=== PATIENT | male | born 1975 | race Caucasian/White ===

== ENCOUNTER 2016-05-29 22:01 | Emergency (ER) | payer BC ==
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
[2016-05-29 23:15] VITALS: BP 123/76
== END 2016-05-29 23:01 | disposition home or self-care (01) ==
LOC: MW.ED 22:01
DX: Z71.1 Person with feared health complaint in whom no diagnosis is made (principal); F17.210 Nicotine dependence, cigarettes, uncomplicated; Z88.5 Allergy status to narcotic agent; Z87.01 Personal history of pneumonia (recurrent)
CPT/HCPCS: 80305; 99281; 99282

== ENCOUNTER 2016-12-14 09:22 | Emergency (ER) | payer BC ==
[2016-12-14] MEDS ORDERED: Famotidine 20 MG Tab PO ONE (09:27)
[2016-12-14] MEDS ORDERED: methylPREDNISolone Sodium Succinate 125 MG/2 ML SDV IVPUSH ONE (09:27)
--- NOTE | 2016-12-14 09:28 | EDM.PDOC ---
ED HPI GENERAL MEDICAL PROBLEM - General Chief Complaint: Allergic Reaction Stated Complaint: unk Time Seen by Provider: 12/14/16 09:27 Source of Information: Reports: Patient - History of Present Illness INITIAL COMMENTS - FREE TEXT/NARRATIVE: HISTORY AND PHYSICAL: History of present illness: []Patient has history of allergic reaction and seasonal allergies, he states he reacted to medication over [facility] last year he does not know what this medication is. 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 Past medical history: As per history of present illness and as reviewed below otherwise noncontributory. Surgical history: As per history of present illness and as reviewed below otherwise noncontributory. Social history: No reported history of drug or alcohol abuse. Family history: As per history of present illness and as reviewed below otherwise noncontributory. Physical exam: HEENT: Atraumatic, normocephalic, pupils reactive, negative for conjunctival pallor or scleral icterus, mucous membranes moist, throat clear, neck supple, nontender, trachea midline. No lip swelling tongue swelling or oral pharyngeal edema no stridor Lungs: Clear to auscultation, breath sounds equal bilaterally, chest nontender. Heart: S1S2, regular, negative for clicks, rubs, or JVD. Abdomen: Soft, nondistended, nontender. Negative for masses or hepatosplenomegaly. Negative for costovertebral tenderness. Pelvis: Stable nontender. Genitourinary: Deferred. Rectal: Deferred. Extremities: Atraumatic, negative for cords or calf pain. Neurovascular unremarkable. Neuro: Awake, alert, oriented. Cranial nerves II through XII unremarkable. Cerebellum unremarkable. Motor and sensory unremarkable throughout. Exam nonfocal. Skin skin is flushed on hands and arms face and trunk several urticarial lesions on the arm on the right Diagnostics: []Lab as below EKG Therapeutics: []Solu-Medrol 125 mg IV Famotidine 20 mg by mouth Benadryl 50 mg IV Medrol Dosepak [id number] symptomatic therapy continued when necessary EpiPen Impression: []Allergic reaction, unknown source Definitive disposition and diagnosis as appropriate pending reevaluation and review of above. Headache Pain Score (Numeric/FACES): 5 - Related Data Allergies Allergy/AdvReac Type Severity Reaction Status Date / Time morphine Allergy Nausea Verified 12/14/16 09:25 Home Meds: Home Meds . [No Known Home Meds] 05/29/16 [History] Past Medical History - Past Health History Medical/Surgical History: Denies Medical/Surgical History Respiratory History: Reports: Pneumonia, Recurrent Gastrointestinal History: Reports: Diverticulosis, Irritable Bowel Syndrome - Infectious Disease History Infectious Disease History: Reports: Chicken Pox - Past Surgical History GI Surgical History: Reports: Other (See Below) Social & Family History - Family History Family Medical History: Noncontributory - Tobacco Use Smoking Status *Q: Current Every Day Smoker Years of Tobacco use: 30 Packs/Tins Daily: 0.2 Used Tobacco, but Quit: No Second Hand Smoke Exposure: No - Caffeine Use Caffeine Use: Reports: Coffee - Alcohol Use Days Per Week of Alcohol Use: 7 Number of Drinks Per Day: 2 Total Drinks Per Week: 14 - Recreational Drug Use Recreational Drug Use: No Drug Use in Last 12 Months: Yes Recreational Drug Type: Reports: Marijuana/Hashish Recreational Drug Use Frequency: Patient Refuses To Answer ED ROS ALLERGIC REACTION - Review of Systems Review Of Systems: ROS reveals no pertinent complaints other than HPI. ED EXAM GENERAL NO PERIP PULSE - Physical Exam Exam: See Below Course - Vital Signs Last Recorded V/S: Last Vital Signs Temp 36.9 C 12/14/16 10:30 Pulse 69 12/14/16 10:30 Resp 16 12/14/16 10:30 BP 118/62 12/14/16 10:30 Pulse Ox 98 12/14/16 10:30 - Orders/Labs/Meds Orders: Active Orders 24 hr Category Date Time Status EKG 12 Lead [EKG Documentation Completion] [RC] STAT Care 12/14/16 09:33 Active Labs: Laboratory Tests 12/14/16 12/14/16 Range/Units 09:35 09:35 WBC 7.11 (4.0-11.0) K/uL RBC 5.10 (4.50-5.90) M/uL Hgb 16.2 (13.0-17.0) g/dL Hct 46.4 (38.0-50.0) % MCV 91.0 (80.0-98.0) fL MCH 31.8 (27.0-32.0) pg MCHC 34.9 (31.0-37.0) g/dL RDW Std Deviation 42.8 (28.0-62.0) fl RDW Coeff of Temo 13 (11.0-15.0) % Plt Count 220 (150-400) K/uL MPV 10.50 (7.40-12.00) fL Neut % (Auto) 58.9 (48.0-80.0) % Lymph % (Auto) 29.1 (16.0-40.0) % [place] % (Auto) 8.9 (0.0-15.0) % Eos % (Auto) 2.8 (0.0-7.0) % Baso % (Auto) 0.3 (0.0-1.5) % Neut # (Auto) 4.2 (1.4-5.7) K/uL Lymph # (Auto) 2.1 (0.6-2.4) K/uL [place] # (Auto) 0.6 (0.0-0.8) K/uL Eos # (Auto) 0.2 (0.0-0.7) K/uL Baso # (Auto) 0.0 (0.0-0.1) K/uL Nucleated RBC % 0.0 /100WBC Nucleated RBCs # 0 K/uL Sodium 141 (136-146) mmol/L Potassium 4.3 (3.5-5.1) mmol/L Chloride 107 (98-110) mmol/L Carbon Dioxide 25 (21-31) mmol/L BUN 14 (6.0-23.0) mg/dL Creatinine 0.9 (0.6-1.5) mg/dL Est Cr Clr Drug Dosing 95.50 mL/min Estimated GFR (MDRD) > 60.0 ml/min Glucose 123 H (60-110) mg/dL Calcium 9.1 (8.8-10.8) mg/dL Total Bilirubin 0.4 (0.1-1.5) mg/dL AST 35 (5-40) IU/L ALT 56 H (8-54) IU/L Alkaline Phosphatase 56 (40-150) Troponin I < 0.10 (0.0-0.29) NG/ML Total Protein 7.1 (6.0-8.0) g/dL Albumin 4.2 (3.5-5.0) g/dL Globulin 2.9 (2.0-3.5) g/dL Albumin/Globulin Ratio 1.5 (1.3-2.8) Meds: Medications Discontinued Medications Generic Name Dose Route Start Last Admin Trade Name Freq PRN Reason Stop Dose Admin Diphenhydramine HCl 50 mg 12/14/16 09:30 12/14/16 09:41 Benadryl IVPUSH 12/14/16 09:31 50 mg ONETIME ONE Administration Famotidine 20 mg 12/14/16 09:27 12/14/16 09:40 Pepcid PO 12/14/16 09:28 20 mg ONETIME ONE Administration Sodium Chloride 1,000 mls @ 999 mls/hr 12/14/16 09:32 12/14/16 09:42 Normal Saline IV 12/14/16 10:32 999 mls/hr NOW STA Administration Sodium Chloride 1,000 mls @ 999 mls/hr 12/14/16 09:32 12/14/16 09:45 Normal Saline IV 12/14/16 10:32 Not Given STAT ONE Methylprednisolone Sodium Succinate 125 mg 12/14/16 09:27 12/14/16 09:40 Solu-Medrol IVPUSH 12/14/16 09:28 125 mg ONETIME ONE Administration Departure - Departure Time of Disposition: 10:41 Disposition: Home, Self-Care 01 Condition: Good Clinical Impression: Allergic reaction - Discharge Information Additional Instructions: Medication as prescribed Return if symptoms persist or worsen Zantac 150 milligrams by mouth twice a day may benefit Benadryl 50 mg every 6 hours as needed All these medications can be used with each other safely and provide benefit Follow-up with primary care in 2 weeks sooner as needed consider allergy testing [facility] - Primary Care [address] [place] [id number] The following information is given to patients seen in the emergency department who are being discharged to home. This information is to outline your options for follow-up care. We provide all patients seen in our emergency department with a follow-up referral. The need for follow-up, as well as the timing and circumstances, are variable depending upon the specifics of your emergency department visit. If you don't have a primary care physician on staff, we will provide you with a referral. We always advise you to contact your personal physician following an emergency department visit to inform them of the circumstance of the visit and for follow-up with them and/or the need for any referrals to a consulting specialist. The emergency department will also refer you to a specialist when appropriate. This referral assures that you have the opportunity for follow-up care with a specialist. All of these measure are taken in an effort to provide you with optimal care, which includes your follow-up. Under all circumstances we always encourage you to contact your private physician who remains a resource for coordinating your care. When calling for follow-up care, please make the office aware that this follow-up is from your recent emergency room visit. If for any reason you are refused follow-up, please contact the [facility] emergency department at and asked to speak to the emergency department charge nurse. - My Orders Last 24 Hours: My Active Orders 12/14/16 09:33 EKG 12 Lead [EKG Documentation Completion] [RC] STAT - Assessment/Plan Last 24 Hours: My Active Orders 12/14/16 09:33 EKG 12 Lead [EKG Documentation Completion] [RC] STAT
[2016-12-14] MEDS ORDERED: diphenhydrAMINE 50 MG/ML SDV IVPUSH ONE (09:30)
[2016-12-14] MEDS ORDERED: Sodium Chloride 0.9% 1,000 ML IV STA (09:32)
[2016-12-14] MEDS ORDERED: Sodium Chloride 0.9% 1,000 ML IV ONE (09:32)
[2016-12-14 10:14] LABS: CHLORIDE,CL 107 mmol/L (98-110); SODIUM,NA 141 mmol/L (136-146)
[2016-12-14 10:33] VITALS: BP 118/62
== END 2016-12-14 11:14 | disposition home or self-care (01) ==
LOC: MW.ED 09:22
DX: T78.40XA Allergy, unspecified, initial encounter (principal); F17.210 Nicotine dependence, cigarettes, uncomplicated; Z88.5 Allergy status to narcotic agent
CPT/HCPCS: 36415; 80053; 84484; 85025; 93005; 96361; 96374; 96375; 99283; A9270; J1200; J2930; J7040; 99284

== ENCOUNTER 2018-11-09 20:20 | Emergency (ER) | payer SELFPAY ==
[2018-11-09 20:31] VITALS: BP 126/81; PULSE 106
[2018-11-09] MEDS ORDERED: Lidocaine 2% Viscous Solution 15 ML Cup PO ONE (20:43)
[2018-11-09] MEDS ORDERED: Benzocaine 20% Topical Spray UD MUCMEM ONE (20:43)
[2018-11-09] MEDS ORDERED: Ketorolac 60 MG/2 ML SDV IM ONE (20:49)
--- NOTE | 2018-11-09 21:10 | EDM.PDOC ---
ED HPI GENERAL MEDICAL PROBLEM - General Chief Complaint: General Stated Complaint: DENTAL PROBLEMS Time Seen by Provider: 11/09/18 20:30 Source of Information: Reports: Patient History Limitations: Reports: No Limitations - History of Present Illness INITIAL COMMENTS - FREE TEXT/NARRATIVE: HISTORY AND PHYSICAL: History of present illness: Patient is a 42-year-old male presents to the ED With complaint of dental pain. He states he had a partial cap placed on a right lower tooth last week. He states he has been having a lot of pain since then. He is taking penicillin but states he was not given anything for pain. He took some ibuprofen 800mg without relief. He denies fevers, chills, nausea, vomiting. Review of systems: As per history of present illness and below otherwise all systems reviewed and negative. Past medical history: As per history of present illness and as reviewed below otherwise noncontributory. Surgical history: As per history of present illness and as reviewed below otherwise noncontributory. Social history: No reported history of drug or alcohol abuse. Family history: As per history of present illness and as reviewed below otherwise noncontributory. Physical exam: General: Patient sitting comfortably in no acute distress and nontoxic appearing HEENT: Temporary cap to tooth #28. No adjacent gum erythema or abscess. Atraumatic, normocephalic, pupils reactive, negative for conjunctival pallor or scleral icterus, mucous membranes moist, throat clear, neck supple, nontender, trachea midline. No meningeal signs. Lungs: Clear to auscultation, breath sounds equal bilaterally, chest nontender. Heart: S1S2, regular, negative for clicks, rubs, or overt murmur. Abdomen: Soft, nondistended, nontender. Negative for masses or hepatosplenomegaly. Negative for costovertebral tenderness. No rigidity, rebound , guarding. Pelvis: Stable nontender. Genitourinary: Deferred. Rectal: Deferred. Extremities: Atraumatic, negative for cords or calf pain. Neurovascular unremarkable. Neuro: Awake, alert, oriented. Cranial nerves II through XII unremarkable. Cerebellum unremarkable. Motor and sensory unremarkable throughout. Exam nonfocal. Notes: Diagnostics: [] Therapeutics: Dental balls Toradol 60mg IM Prescriptions: Tylenol #3 Impression: Dentalgia Plan: Use dental balls and take ibuprofen as instructed You may take Tylenol No. 3 as needed for severe pain, do not take while driving as it may make you drowsy. Follow-up with dentist Return to ED as needed as discussed Definitive disposition and diagnosis as appropriate pending reevaluation and review of above. right upper dental pain Pain Score (Numeric/FACES): 10 - Related Data Allergies Allergy/AdvReac Type Severity Reaction Status Date / Time morphine Allergy Nausea Verified 02/01/18 12:20 Home Meds: Home Meds Penicillin V Potassium 11/09/18 [History] Past Medical History - Past Health History Medical/Surgical History: Denies Medical/Surgical History HEENT History: Reports: None Cardiovascular History: Reports: None Respiratory History: Reports: Pneumonia, Recurrent Gastrointestinal History: Reports: Diverticulosis, Irritable Bowel Syndrome Genitourinary History: Reports: None Musculoskeletal History: Reports: Other (See Below) Other Musculoskeletal History: broken fingers Neurological History: Reports: None Psychiatric History: Reports: None Endocrine/Metabolic History: Reports: None Hematologic History: Reports: None Immunologic History: Reports: None Oncologic (Cancer) History: Reports: None Dermatologic History: Reports: None - Infectious Disease History Infectious Disease History: Reports: Chicken Pox - Past Surgical History Head Surgeries/Procedures: Reports: None GI Surgical History: Reports: Other (See Below) Other GI Surgeries/Procedures: operation for diverticultis Social & Family History - Family History Family Medical History: Noncontributory - Tobacco Use Smoking Status *Q: Current Every Day Smoker Years of Tobacco use: 20 Packs/Tins Daily: 0.5 - Caffeine Use Caffeine Use: Reports: None - Recreational Drug Use Recreational Drug Use: No ED ROS GENERAL - Review of Systems Review Of Systems: ROS reveals no pertinent complaints other than HPI. ED EXAM, GENERAL - Physical Exam Exam: See Below (see dictation) Course - Vital Signs Last Recorded V/S: Last Vital Signs Temp 96.0 F 11/09/18 20:25 Pulse 106 H 11/09/18 20:25 Resp 18 11/09/18 20:25 BP 126/81 11/09/18 20:25 Pulse Ox 96 11/09/18 20:25 - Orders/Labs/Meds Meds: Medications Discontinued Medications Generic Name Dose Route Start Last Admin Trade Name Freq PRN Reason Stop Dose Admin Benzocaine 2 each 11/09/18 20:43 11/09/18 21:07 Hurricaine One 20% MUCMEM 11/09/18 20:44 2 each ONETIME ONE Administration Ketorolac Tromethamine 60 mg 11/09/18 20:49 11/09/18 21:06 Toradol IM 11/09/18 20:50 60 mg ONETIME ONE Administration Lidocaine HCl 15 ml 11/09/18 20:43 11/09/18 21:07 Xylocaine 2% Viscous PO 11/09/18 20:44 15 ml ONETIME ONE Administration Departure - Departure Time of Disposition: 21:10 Disposition: Home, Self-Care 01 Condition: Good Clinical Impression: Dentalgia - Discharge Information Referrals: PCP,None [Primary Care Provider] - Forms: ED Department Discharge Additional Instructions: The following information is given to patients seen in the emergency department who are being discharged to home. This information is to outline your options for follow-up care. We provide all patients seen in our emergency department with a follow-up referral. The need for follow-up, as well as the timing and circumstances, are variable depending upon the specifics of your emergency department visit. If you don't have a primary care physician on staff, we will provide you with a referral. We always advise you to contact your personal physician following an emergency department visit to inform them of the circumstance of the visit and for follow-up with them and/or the need for any referrals to a consulting specialist. The emergency department will also refer you to a specialist when appropriate. This referral assures that you have the opportunity for follow-up care with a specialist. All of these measure are taken in an effort to provide you with optimal care, which includes your follow-up. Under all circumstances we always encourage you to contact your private physician who remains a resource for coordinating your care. When calling for follow-up care, please make the office aware that this follow-up is from your recent emergency room visit. If for any reason you are refused follow-up, please contact the [facility] Emergency Department at and asked to speak to the emergency department charge nurse. [facility] Primary Care [address] [place] [address] [id number] [address] [place] [address] Use dental balls and take ibuprofen as instructed You may take Tylenol No. 3 as needed for severe pain, do not take while driving as it may make you drowsy. Follow-up with dentist Return to ED as needed as discussed
== END 2018-11-09 21:33 | disposition home or self-care (01) ==
LOC: MW.ED 20:20
DX: K08.89 Other specified disorders of teeth and supporting structures (principal); F17.200 Nicotine dependence, unspecified, uncomplicated; Z88.5 Allergy status to narcotic agent
CPT/HCPCS: 96372; 99282; A9270; J1885

== ENCOUNTER 2018-11-21 18:53 | Emergency (ER) | payer SELFPAY ==
[2018-11-21 19:10] VITALS: BP 119/78; PULSE 97
--- NOTE | 2018-11-21 19:15 | EDM.PDOC ---
ED HPI GENERAL MEDICAL PROBLEM - General Chief Complaint: ENT Problem Stated Complaint: ABCESS Time Seen by Provider: 11/21/18 19:07 - History of Present Illness INITIAL COMMENTS - FREE TEXT/NARRATIVE: HISTORY AND PHYSICAL: History of present illness: The patient is a 43-year-old male who presents with complaints of swelling and pain to his gumline near teeth 25/26/27 but has a history of multiple areas of dental disease and has been seeing a specialist and started a root canal. He says he has an appointment on Saturday but he has noticed some new swelling and pain to the area. He has dental balls that he received from us that he can still use for pain but he is concerned about infection. He has no other systemic complaints Review of systems: As per history of present illness and below otherwise all systems reviewed and negative. Past medical history: As per history of present illness and as reviewed below otherwise noncontributory. Surgical history: As per history of present illness and as reviewed below otherwise noncontributory. Social history: No reported history of drug or alcohol abuse. Family history: As per history of present illness and as reviewed below otherwise noncontributory. Physical exam: General: Well-developed well-nourished man who is nontoxic and vital signs were noted by me HEENT: Atraumatic, normocephalic, pupils reactive, negative for conjunctival pallor or scleral icterus, mucous membranes moist, throat clear, neck supple, nontender, trachea midline. No cervical adenopathy no nuchal rigidity and there are multiple areas of dental disease dental decay and gum swelling the most noteworthy is a long the gum line at teeth #25, 26, 27 but there is no fluctuance or drainage. Lungs: Clear to auscultation, breath sounds equal bilaterally, chest nontender. Heart: S1S2, regular, negative for clicks, rubs, or JVD. Abdomen: Soft, nondistended, nontender. NABS Pelvis: Stable nontender. Genitourinary: Deferred. Rectal: Deferred. Extremities: Atraumatic, negative for cords or calf pain. Neurovascular unremarkable. Neuro: Awake, alert, oriented. Cranial nerves II through XII unremarkable. Cerebellum unremarkable. Motor and sensory unremarkable throughout. Exam nonfocal. Diagnostics: [] Therapeutics: [] he says he has dental balls at home to use for planes I will prescribe clindamycin and have advised him to call and follow-up with his oral surgeon Impression: []Dental infection Definitive disposition and diagnosis as appropriate pending reevaluation and review of above. Right Oral/Mouth Pain Score (Numeric/FACES): 10 - Related Data Allergies Allergy/AdvReac Type Severity Reaction Status Date / Time morphine Allergy Nausea Verified 11/21/18 19:02 Home Meds: Home Meds . [No Known Home Meds] 11/21/18 [History] Past Medical History - Past Health History Medical/Surgical History: Denies Medical/Surgical History HEENT History: Reports: None Cardiovascular History: Reports: None Respiratory History: Reports: Pneumonia, Recurrent Gastrointestinal History: Reports: Diverticulosis, Irritable Bowel Syndrome Genitourinary History: Reports: None Musculoskeletal History: Reports: Other (See Below) Other Musculoskeletal History: broken fingers Neurological History: Reports: None Psychiatric History: Reports: None Endocrine/Metabolic History: Reports: None Hematologic History: Reports: None Immunologic History: Reports: None Oncologic (Cancer) History: Reports: None Dermatologic History: Reports: None - Infectious Disease History Infectious Disease History: Reports: Chicken Pox - Past Surgical History Head Surgeries/Procedures: Reports: None GI Surgical History: Reports: Other (See Below) Other GI Surgeries/Procedures: operation for diverticultis Social & Family History - Family History Family Medical History: Noncontributory - Tobacco Use Smoking Status *Q: Current Every Day Smoker Years of Tobacco use: 20 Packs/Tins Daily: 0.5 - Caffeine Use Caffeine Use: Reports: Energy Drinks - Recreational Drug Use Recreational Drug Use: No ED ROS GENERAL - Review of Systems Review Of Systems: ROS reveals no pertinent complaints other than HPI. ED EXAM, GENERAL - Physical Exam Exam: See Below (See dictation) Course - Vital Signs Last Recorded V/S: Last Vital Signs Temp 36.1 C 11/21/18 19:03 Pulse 97 11/21/18 19:03 Resp 18 11/21/18 19:03 BP 119/78 11/21/18 19:03 Pulse Ox 96 11/21/18 19:03 Departure - Departure Time of Disposition: 19:14 Disposition: Home, Self-Care 01 Condition: Good Clinical Impression: Dental infection - Discharge Information Referrals: PCP,None [Primary Care Provider] - Additional Instructions: The following information is given to patients seen in the emergency department who are being discharged to home. This information is to outline your options for follow-up care. We provide all patients seen in our emergency department with a follow-up referral. The need for follow-up, as well as the timing and circumstances, are variable depending upon the specifics of your emergency department visit. If you don't have a primary care physician on staff, we will provide you with a referral. We always advise you to contact your personal physician following an emergency department visit to inform them of the circumstance of the visit and for follow-up with them and/or the need for any referrals to a consulting specialist. The emergency department will also refer you to a specialist when appropriate. This referral assures that you have the opportunity for followup care with a specialist. All of these measure are taken in an effort to provide you with optimal care, which includes your followup. Under all circumstances we always encourage you to contact your private physician who remains a resource for coordinating your care. When calling for followup care, please make the office aware that this follow-up is from your recent emergency room visit. If for any reason you are refused follow-up, please contact the [facility] emergency department at and ask to speak to the emergency department charge nurse. [facility] Primary care- Internal Medicine and Family [address] [id number] Use medications as prescribed and use the dental balls that you have for pain management. Only take the stronger pain medicine when you're at home for sleep time. Please connect with your oral surgeon and discuss tonight the events and return to ER as needed and as discussed
== END 2018-11-21 19:30 | disposition home or self-care (01) ==
LOC: MW.ED 18:53
DX: K04.7 Periapical abscess without sinus (principal); F17.210 Nicotine dependence, cigarettes, uncomplicated; Z88.5 Allergy status to narcotic agent
CPT/HCPCS: 99282; 99283

== ENCOUNTER 2018-12-29 19:01 | Emergency (ER) | payer SELFPAY ==
[2018-12-29] MEDS ORDERED: Ondansetron 4 MG Tab.DIS PO ONE (19:39)
--- NOTE | 2018-12-29 19:43 | EDM.PDOC ---
ED HPI GENERAL MEDICAL PROBLEM - General Chief Complaint: Abdominal Pain Stated Complaint: STOMACH PAINS Time Seen by Provider: 12/29/18 19:30 - History of Present Illness INITIAL COMMENTS - FREE TEXT/NARRATIVE: HISTORY AND PHYSICAL: History of present illness: the patient is a 43-year-old male with a history of IBS who is only using Bentyl for management and does not have a GI doctor fish on no biologic, and who presents with onset of diffuse abdominal pain more on the right side with several episodes of watery diarrhea that started today. The patient says he felt fine yesterday and the symptoms started today and he has had no fevers chest pain shortness of breath. He has been vomiting intermittently. He says he has a history of appendectomy and resection of a part of his small bowel for a Meckel's diverticulum but not due to his IBS. He says he has no formal IBS diagnosis such as Crohn's or ulcerative colitis. He has never been on any meds for his IBS other than the Bentyl which seems to always alleviate his symptoms. Today his diarrhea was watery and he only had several episodes which were not black or bloody and he has been vomiting but is not been coffee ground black or bloody. Initially on my evaluation with the patient I was planning oworkup but he is saying he only wants a med refill of his Bentyl. He says he will follow- up with his provider in the clinic and get GI follow-up. Review of systems: As per history of present illness and below otherwise all systems reviewed and negative. Past medical history: As per history of present illness and as reviewed below otherwise noncontributory. Surgical history: As per history of present illness and as reviewed below otherwise noncontributory. Social history: No reported history of drug or alcohol abuse. Family history: As per history of present illness and as reviewed below otherwise noncontributory. Physical exam: general: Well-developed well-nourished man who is nontoxic and vital signs are noted by me HEENT: Atraumatic, normocephalic, pupils reactive, negative for conjunctival pallor or scleral icterus, mucous membranes moist, throat clear, neck supple, nontender, trachea midline. Lungs: Clear to auscultation, breath sounds equal bilaterally, chest nontender. Heart: S1S2, regular, negative for clicks, rubs, or JVD. Abdomen: Soft, nondistended,slightly hyperactive bowel sounds and no tympany on percussion. There is some mild tenderness in the right abdomen in the upper and mid quadrants without rebound or guarding. Negative for masses or hepatosplenomegaly. Negative for costovertebral tenderness. Pelvis: Stable nontender. Genitourinary: Deferred. Rectal: Deferred. Extremities: Atraumatic, negative for cords or calf pain. Neurovascular unremarkable. Neuro: Awake, alert, oriented. Cranial nerves II through XII unremarkable. Cerebellum unremarkable. Motor and sensory unremarkable throughout. Exam nonfocal. Diagnostics: I offered the patient labs and CT scan of the abdomen and pelvis and he is declining Therapeutics: Zofran ODT, patient declines IV IV fluids and any other medications The patient specifically has sent me that he does not want a workup or evaluation of this only once his Bentyl, 10 mg 3 times a day, filled. He is aware my concerns and accepts those. Impression: abdominal pain with vomiting bruno of IBS, medication refill Definitive disposition and diagnosis as appropriate pending reevaluation and review of above. abdominal Pain Score (Numeric/FACES): 7 - Related Data Allergies Allergy/AdvReac Type Severity Reaction Status Date / Time morphine Allergy Nausea Verified 12/29/18 19:30 Home Meds: Home Meds Dicyclomine [Bentyl] 10 mg PO TID 12/29/18 [History] Past Medical History - Past Health History Medical/Surgical History: Denies Medical/Surgical History HEENT History: Reports: None Cardiovascular History: Reports: None Respiratory History: Reports: Pneumonia, Recurrent Gastrointestinal History: Reports: Diverticulosis, Irritable Bowel Syndrome Genitourinary History: Reports: None Musculoskeletal History: Reports: Other (See Below) Other Musculoskeletal History: broken fingers Neurological History: Reports: None Psychiatric History: Reports: None Endocrine/Metabolic History: Reports: None Hematologic History: Reports: None Immunologic History: Reports: None Oncologic (Cancer) History: Reports: None Dermatologic History: Reports: None - Infectious Disease History Infectious Disease History: Reports: Chicken Pox - Past Surgical History Head Surgeries/Procedures: Reports: None GI Surgical History: Reports: Other (See Below) Other GI Surgeries/Procedures: operation for diverticultis Social & Family History - Family History Family Medical History: Noncontributory - Caffeine Use Caffeine Use: Reports: Energy Drinks ED ROS GENERAL - Review of Systems Review Of Systems: Comprehensive ROS is negative, except as noted in HPI. ED EXAM, GENERAL - Physical Exam Exam: See Below (see dictation) Course - Vital Signs Last Recorded V/S: Last Vital Signs Temp 36.4 C 12/29/18 19:33 Pulse 80 12/29/18 19:33 Resp 16 12/29/18 19:33 BP 104/74 12/29/18 19:33 Pulse Ox 96 12/29/18 19:33 - Orders/Labs/Meds Orders: Active Orders 24 hr Category Date Time Status Ondansetron [Zofran ODT] Med 12/29/18 19:39 Once 4 mg PO ONETIME ONE Departure - Departure Time of Disposition: 19:42 Disposition: Home, Self-Care 01 Condition: Good Clinical Impression: Abdominal pain, vomiting, and diarrhea - Discharge Information Referrals: Lobo Baer MD [Primary Care Provider] - Additional Instructions: The following information is given to patients seen in the emergency department who are being discharged to home. This information is to outline your options for follow-up care. We provide all patients seen in our emergency department with a follow-up referral. The need for follow-up, as well as the timing and circumstances, are variable depending upon the specifics of your emergency department visit. If you don't have a primary care physician on staff, we will provide you with a referral. We always advise you to contact your personal physician following an emergency department visit to inform them of the circumstance of the visit and for follow-up with them and/or the need for any referrals to a consulting specialist. The emergency department will also refer you to a specialist when appropriate. This referral assures that you have the opportunity for followup care with a specialist. All of these measure are taken in an effort to provide you with optimal care, which includes your followup. Under all circumstances we always encourage you to contact your private physician who remains a resource for coordinating your care. When calling for followup care, please make the office aware that this follow-up is from your recent emergency room visit. If for any reason you are refused follow-up, please contact the [facility] emergency department at and ask to speak to the emergency department charge nurse. [facility] Primary care- Internal Medicine and Family [address] [place] [id number] [facility] [address] [place] [address] Please follow-upprovider or one of ours ine clinic for further care and evaluationnd please return to ER as needed and as. Take sips of fluids and bland bites of food and use your Bentyl as needed. - My Orders Last 24 Hours: My Active Orders 12/29/18 19:39 Ondansetron [Zofran ODT] 4 mg PO ONETIME ONE - Assessment/Plan Last 24 Hours: My Active Orders 12/29/18 19:39 Ondansetron [Zofran ODT] 4 mg PO ONETIME ONE
[2018-12-29 19:52] VITALS: BP 106/76; PULSE 94
== END 2018-12-29 19:55 | disposition home or self-care (01) ==
LOC: MW.ED 19:01
DX: R10.84 Generalized abdominal pain (principal); Z76.0 Encounter for issue of repeat prescription; R19.7 Diarrhea, unspecified; R11.10 Vomiting, unspecified; Z88.5 Allergy status to narcotic agent
CPT/HCPCS: 99284; A9270; 99283

== ENCOUNTER 2019-02-14 17:41 | Emergency (ER) | payer SELFPAY | END 2019-02-14 18:28 | disposition left against medical advice (07) | LOC: MW.ED 17:41 | DX: Z53.21 Procedure and treatment not carried out due to patient leaving prior to being seen by health care provider (principal) ==

== ENCOUNTER 2019-02-16 17:01 | Emergency (ER) | payer SELFPAY ==
[2019-02-16] MEDS ORDERED: Ketorolac 30 MG/ML SDV IVPUSH ONE (17:39)
[2019-02-16] MEDS ORDERED: Ondansetron 4 MG/2 ML SDV IVPUSH ONE (17:39)
--- NOTE | 2019-02-16 18:03 | EDM.PDOC ---
ED [facility] GENERAL MEDICAL PROBLEM - General Chief Complaint: Abdominal Pain Stated Complaint: ABDOMINAL PAIN Time Seen by Provider: 02/16/19 18:00 Source of Information: Reports: Patient History Limitations: Reports: No Limitations - History of Present Illness INITIAL COMMENTS - FREE TEXT/NARRATIVE: Patient is a 43-year-old male with a past medical history of diverticulosis complaining of generalized abdominal pain. Duration of pain has been about 3 days. Patient states he was here on Saturday however he walked out before being seen as he was getting patient. Patient reports associated nausea without vomiting. Patient denies any fevers, chills. Patient states the pain is now worse in the left upper quadrant of his abdomen. Patient reports associated diarrhea nonbloody. In addition to that documented in the HPI above, the additional ROS was obtained : Constitutional: Denies fevers or chills Eyes: Denies vision changes ENMT: Denies sore throat CV: Denies chest pain Resp: Denies SOB GI: Per HPI : Denies painful urination MSK: Denies recent trauma Skin: Denies new rashes Neuro: Denies new numbness or tingling or weakness Endocrine: Denies unexpected weight loss Heme: Denies bleeding disorders I have reviewed the triage vital signs Const: Well nourished, well developed, appears stated age Eyes: PERRL, no conjunctival injection HENT: NCAT, Neck supple without meningismus CV: RRR, Warm, well-perfused extremities RESP: CTAB, Unlabored respiratory effort GI: soft, non-tender, non-distended, no masses MSK: No gross deformities appreciated Skin: Warm, dry. No rashes Neuro: Alert, risk manager II-XII grossly intact. Sensation and motor function of extremities grossly intact. Psych: Appropriate mood and affect Assessment and plan: 43-year-old male presenting with abdominal pain. Patient's labs are noted. Patient does not have any evidence of leukocytosis. Patient feels better after pain medication. Patient is tolerating p.o. and repeat abdominal exam is unremarkable. Patient will be discharged home with return precautions. Questions were asked and answered. Patient with agrees with plan. abdominal Pain Score (Numeric/FACES): 4 - Related Data Allergies Allergy/AdvReac Type Severity Reaction Status Date / Time morphine Allergy Nausea Verified 02/16/19 17:13 Home Meds: Home Meds Dicyclomine [Bentyl] 10 mg PO TID 12/29/18 [History] Past Medical History - Past Health History Medical/Surgical History: Denies Medical/Surgical History HEENT History: Reports: None Cardiovascular History: Reports: None Respiratory History: Reports: Pneumonia, Recurrent Gastrointestinal History: Reports: Diverticulosis, Irritable Bowel Syndrome Genitourinary History: Reports: None Musculoskeletal History: Reports: Other (See Below) Other Musculoskeletal History: broken fingers Neurological History: Reports: None Psychiatric History: Reports: None Endocrine/Metabolic History: Reports: None Hematologic History: Reports: None Immunologic History: Reports: None Oncologic (Cancer) History: Reports: None Dermatologic History: Reports: None - Infectious Disease History Infectious Disease History: Reports: Chicken Pox - Past Surgical History Head Surgeries/Procedures: Reports: None GI Surgical History: Reports: Other (See Below) Other GI Surgeries/Procedures: operation for diverticultis Social & Family History - Family History Family Medical History: Noncontributory - Tobacco Use Smoking Status *Q: Current Every Day Smoker Years of Tobacco use: 25 Packs/Tins Daily: 0.5 - Caffeine Use Caffeine Use: Reports: Coffee - Recreational Drug Use Recreational Drug Use: Yes Recreational Drug Type: Reports: Marijuana/Hashish Recreational Drug Use Frequency: Weekly ED ROS GENERAL - Review of Systems Review Of Systems: See Below ED EXAM, GI/ABD - Physical Exam Exam: See Below Course - Vital Signs Last Recorded V/S: Last Vital Signs Temp 36.7 C 02/16/19 17:13 Pulse 90 02/16/19 17:13 Resp 18 02/16/19 17:13 BP 123/90 02/16/19 17:13 Pulse Ox 96 02/16/19 17:13 - Orders/Labs/Meds Labs: Laboratory Tests 02/16/19 02/16/19 Range/Units 18:00 18:00 WBC 8.30 (4.0-11.0) K/uL RBC 4.73 (4.50-5.90) M/uL Hgb 14.7 (13.0-17.0) g/dL Hct 42.8 (38.0-50.0) % MCV 90.5 (80.0-98.0) fL MCH 31.1 (27.0-32.0) pg MCHC 34.3 (31.0-37.0) g/dL RDW Std Deviation 42.6 (28.0-62.0) fl RDW Coeff of Temo 13 (11.0-15.0) % Plt Count 290 (150-400) K/uL MPV 9.70 (7.40-12.00) fL Neut % (Auto) 59.8 (48.0-80.0) % Lymph % (Auto) 29.3 (16.0-40.0) % Hart % (Auto) 7.0 (0.0-15.0) % Eos % (Auto) 3.5 (0.0-7.0) % Baso % (Auto) 0.4 (0.0-1.5) % Neut # (Auto) 5.0 (1.4-5.7) K/uL Lymph # (Auto) 2.4 (0.6-2.4) K/uL Hart # (Auto) 0.6 (0.0-0.8) K/uL Eos # (Auto) 0.3 (0.0-0.7) K/uL Baso # (Auto) 0.0 (0.0-0.1) K/uL Nucleated RBC % 0.0 /100WBC Nucleated RBCs # 0 K/uL Sodium 140 (136-148) mmol/L Potassium 4.2 (3.5-5.1) mmol/L Chloride 103 (98-107) mmol/L Carbon Dioxide 27.2 (21.0-32.0) mmol/L BUN 21 H (7.0-18.0) mg/dL Creatinine 1.1 (0.8-1.3) mg/dL Est Cr Clr Drug Dosing 76.53 mL/min Estimated GFR (MDRD) > 60.0 ml/min Glucose 97 (74-106) mg/dL Calcium 9.2 (8.5-10.1) mg/dL Total Bilirubin 0.1 L (0.2-1.0) mg/dL AST 17 (15-37) IU/L ALT 41 (14-63) IU/L Alkaline Phosphatase 70 (46-116) U/L Total Protein 7.1 (6.4-8.2) g/dL Albumin 3.7 (3.4-5.0) g/dL Globulin 3.4 (2.6-4.0) g/dL Albumin/Globulin Ratio 1.1 (0.9-1.6) Lipase 214 (73-393) U/L Meds: Medications Discontinued Medications Generic Name Dose Route Start Last Admin Trade Name Wiliam PRN Reason Stop Dose Admin Ketorolac Tromethamine 15 mg 02/16/19 17:39 02/16/19 18:03 Toradol IVPUSH 02/16/19 17:40 15 mg ONETIME ONE Administration Ondansetron HCl 4 mg 02/16/19 17:39 02/16/19 18:03 Zofran IVPUSH 02/16/19 17:40 4 mg ONETIME ONE Administration Departure - Departure Time of Disposition: 18:50 Disposition: Home, Self-Care 01 Clinical Impression: Abdominal pain - Discharge Information Referrals: Lobo Baer MD [Primary Care Provider] - Forms: ED Department Discharge Sepsis Event Note - Evaluation Sepsis Screening Result: No Definite Risk - Focused Exam Vital Signs: Vital Signs Temp Pulse Resp BP Pulse Ox 02/16/19 17:13 36.7 C 90 18 123/90 96 Date Exam was Performed: 02/16/19 Time Exam was Performed: 18:48
[2019-02-16 18:43] LABS: BLOOD UREA NITROGEN,BUN 21 mg/dL (7.0-18.0); CARBON DIOXIDE,CO2 27.2 mmol/L (21.0-32.0); CHLORIDE,CL 103 mmol/L (98-107); GLUCOSE RANDOM 97 mg/dL (74-106); LIPASE 214 U/L (73-393); POTASSIUM,K 4.2 mmol/L (3.5-5.1); SODIUM,NA 140 mmol/L (136-148)
[2019-02-16 18:56] VITALS: BP 123/85; PULSE 87
== END 2019-02-16 18:58 | disposition home or self-care (01) ==
LOC: MW.ED 17:01
DX: R10.84 Generalized abdominal pain (principal); R11.0 Nausea; F17.210 Nicotine dependence, cigarettes, uncomplicated; Z88.6 Allergy status to analgesic agent
CPT/HCPCS: 36415; 80053; 83690; 85025; 96374; 96375; 99284; J1885; J2405; 99283

== ENCOUNTER 2019-06-26 15:40 | Emergency (ER) | payer SELFPAY ==
[2019-06-26] MEDS ORDERED: Ondansetron 4 MG/2 ML SDV IVPUSH ONE (15:46)
[2019-06-26] MEDS ORDERED: Sodium Chloride 0.9% 10 ML Syringe FLUSH PRN (15:46)
[2019-06-26] MEDS ORDERED: LORazepam 2 MG/ML SDV IVPUSH ONE (15:46)
[2019-06-26] MEDS ORDERED: Sodium Chloride 0.9% 1,000 ML IV ONE (15:46)
[2019-06-26] MEDS ORDERED: Sodium Chloride 0.9% 2.5 ML Syringe FLUSH PRN (15:46)
--- NOTE | 2019-06-26 15:53 | EDM.PDOC ---
ED HPI GENERAL MEDICAL PROBLEM - General Stated Complaint: ANXIETY,SWEATS Time Seen by Provider: 06/26/19 15:42 Source of Information: Reports: Patient History Limitations: Reports: No Limitations - History of Present Illness INITIAL COMMENTS - FREE TEXT/NARRATIVE: HISTORY AND PHYSICAL: History of present illness: Patient is a 43-year-old male who presents to the emergency room with complaints of nausea, vomiting, chest pain and generalized abdominal pain since 0800 today. He states he feels very anxious and fidgety and became concerned when he started vomiting this afternoon. He does routinely smoke marijuana but denies any other substance/drug abuse. Describes the pain as sharp stabbing pain that is in the upper abdomen and radiates into mid chest. Patient denies any fever, chills, headache, change in vision, syncope or near syncope. Denies any back pain, shortness of breath or cough. Denies any constipation or dysuria. Has not noted any blood in urine or stool. He reportedly has a history of diverticulitis; but hasn't had any problems "for years". Patient has been eating and drinking appropriately. Review of systems: As per history of present illness and below otherwise all systems reviewed and negative. Past medical history: As per history of present illness and as reviewed below otherwise noncontributory. Surgical history: As per history of present illness and as reviewed below otherwise noncontributory. Social history: See social history for further information Family history: As per history of present illness and as reviewed below otherwise noncontributory. Physical exam: General: Well-developed and well-nourished 43-year-old male. Alert and oriented. Fidgeting and anxious appearing, but Nontoxic and in no acute distress. HEENT: Atraumatic, normocephalic, pupils equal and reactive bilaterally, negative for conjunctival pallor or scleral icterus, mucous membranes moist, neck supple, nontender, trachea midline. He has repetitive jaw movement; jarring back and forth. No drooling or trismus noted. No meningeal signs. No hot potato voice noted. Lungs: Clear to auscultation, breath sounds equal bilaterally, chest nontender. Heart: S1S2, regular rate and rhythm without overt murmur Abdomen: Soft, nondistended, nontender. Negative for masses or hepatosplenomegaly. Negative for costovertebral tenderness. Skin: Intact, warm, dry. No lesions or rashes noted. Extremities: Atraumatic, moves all extremities per self without difficulty or deficits, negative for cords or calf pain. Neurovascular unremarkable. Neuro: Awake, alert, oriented. Cranial nerves II through XII unremarkable. Cerebellum unremarkable. Motor and sensory unremarkable throughout. Exam nonfocal. Notes: Initially questioning drug abuse; as his behavior and body movements are concerning for thin methamphetamine abuse. He denies any history of drug use with the exception of routinely smoking marijuana. EKG shows no acute findings. Dr Chamberlain directly involved in patient care. Patient refuses chest x-ray at this time. Aware of patient's elevated troponin; vital signs are stable. Waiting for UA/Drug Screen. Currently pain free. Besides his elevated troponin, labs are unremarkable. Currently pain free and talking on the phone. He continues to have fidgety behavior; head CT added ( reviewed with Dr Chamberlain). Unremarkable head CT. Patient has been pain free and anxious to "leave here". Since first troponin was drawn, his second troponin has come down. I discussed with patient again his lab findings and reviewed with him that I would like to keep him at our facility (if our hospitalist is willing) and we discussed the possible option of being transferred to [facility] in [place] to see a in store demonstrator. The patient refuses both options, demanding to be discharged home stating he needs to go home to pack up his stuff as he does plan on moving back home to [place] within the next day. We did review the possible outcomes of leaving AGAINST MEDICAL ADVICE including but not limited to serious heart damage and/or . We discussed signs and symptoms that would prompt him to call 911 since he is adamant about signing out AMA. This was witnessed by hospital staff. Diagnostics: CBC, CMP, UA, Drug Screen, Lipase, CXR, Troponin, EKG Therapeutics: IV fluids, Zofran, Ativan Impression: Chest pain r/o SD Elevated Troponin Left against medical advice Plan: Patient left against medical advice with a positive troponin. Definitive disposition and diagnosis as appropriate pending reevaluation and review of above. Epigastric Pain Score (Numeric/FACES): 5 - Related Data Allergies Allergy/AdvReac Type Severity Reaction Status Date / Time morphine Allergy Nausea Verified 06/26/19 15:56 Home Meds: Home Meds Dicyclomine [Bentyl] 10 mg PO TID 12/29/18 [History] Past Medical History - Past Health History Medical/Surgical History: Denies Medical/Surgical History HEENT History: Reports: None Cardiovascular History: Reports: None Respiratory History: Reports: Pneumonia, Recurrent Gastrointestinal History: Reports: Diverticulosis, Irritable Bowel Syndrome Genitourinary History: Reports: None Musculoskeletal History: Reports: Other (See Below) Other Musculoskeletal History: broken fingers Neurological History: Reports: None Psychiatric History: Reports: None Endocrine/Metabolic History: Reports: None Hematologic History: Reports: None Immunologic History: Reports: None Oncologic (Cancer) History: Reports: None Dermatologic History: Reports: None - Infectious Disease History Infectious Disease History: Reports: Chicken Pox - Past Surgical History Head Surgeries/Procedures: Reports: None GI Surgical History: Reports: Other (See Below) Other GI Surgeries/Procedures: operation for diverticultis Social & Family History - Family History Family Medical History: Noncontributory - Caffeine Use Caffeine Use: Reports: Coffee ED ROS GENERAL - Review of Systems Review Of Systems: Comprehensive ROS is negative, except as noted in HPI. ED EXAM, GENERAL - Physical Exam Exam: See Below (See dictation) Course - Vital Signs Last Recorded V/S: Last Vital Signs Temp 96.5 F L 06/26/19 15:52 Pulse 90 06/26/19 18:26 Resp 18 06/26/19 18:26 BP 111/78 06/26/19 18:26 Pulse Ox 97 06/26/19 18:26 - Orders/Labs/Meds Orders: Active Orders 24 hr Category Date Time Status EKG Documentation Completion [RC] STAT Care 06/26/19 15:46 Active Sodium Chloride 0.9% [Saline Flush] Med 06/26/19 15:46 Active 10 ml FLUSH ASDIRECTED PRN Sodium Chloride 0.9% [Saline Flush] Med 06/26/19 15:46 Active 2.5 ml FLUSH ASDIRECTED PRN Saline Lock Insert [OM.PC] Stat Oth 06/26/19 15:46 Ordered Medication Orders Sodium Chloride (Saline Flush) 10 ml FLUSH ASDIRECTED PRN PRN Reason: Keep Vein Open Last Admin: 06/26/19 16:13 Dose: 10 ml Sodium Chloride (Saline Flush) 2.5 ml FLUSH ASDIRECTED PRN PRN Reason: Keep Vein Open Last Admin: 06/26/19 16:13 Dose: 2.5 ml Labs: Laboratory Tests 06/26/19 06/26/19 06/26/19 Range/Units 15:52 15:52 15:52 WBC 9.29 (4.0-11.0) K/uL RBC 4.48 L (4.50-5.90) M/uL Hgb 13.8 (13.0-17.0) g/dL Hct 40.2 (38.0-50.0) % MCV 89.7 (80.0-98.0) fL MCH 30.8 (27.0-32.0) pg MCHC 34.3 (31.0-37.0) g/dL RDW Std Deviation 41.2 (28.0-62.0) fl RDW Coeff of Temo 13 (11.0-15.0) % Plt Count 294 (150-400) K/uL MPV 9.20 (7.40-12.00) fL Neut % (Auto) 70.2 (48.0-80.0) % Lymph % (Auto) 21.0 (16.0-40.0) % Thurston % (Auto) 7.2 (0.0-15.0) % Eos % (Auto) 1.4 (0.0-7.0) % Baso % (Auto) 0.2 (0.0-1.5) % Neut # (Auto) 6.5 H (1.4-5.7) K/uL Lymph # (Auto) 2.0 (0.6-2.4) K/uL Thurston # (Auto) 0.7 (0.0-0.8) K/uL Eos # (Auto) 0.1 (0.0-0.7) K/uL Baso # (Auto) 0.0 (0.0-0.1) K/uL Nucleated RBC % 0.0 /100WBC Nucleated RBCs # 0 K/uL Sodium 140 (136-148) mmol/L Potassium 3.6 (3.5-5.1) mmol/L Chloride 102 (98-107) mmol/L Carbon Dioxide 30.3 (21.0-32.0) mmol/L BUN 16 (7.0-18.0) mg/dL Creatinine 0.9 (0.8-1.3) mg/dL Est Cr Clr Drug Dosing 93.53 mL/min Estimated GFR (MDRD) > 60.0 ml/min Glucose 100 (74-106) mg/dL Calcium 8.9 (8.5-10.1) mg/dL Total Bilirubin 0.4 (0.2-1.0) mg/dL AST 23 (15-37) IU/L ALT 34 (14-63) IU/L Alkaline Phosphatase 60 (46-116) U/L Troponin I 0.083 H* (0.000-0.056) ng/mL Total Protein 6.7 (6.4-8.2) g/dL Albumin 3.7 (3.4-5.0) g/dL Globulin 3.0 (2.6-4.0) g/dL Albumin/Globulin Ratio 1.2 (0.9-1.6) Lipase 117 (73-393) U/L Urine Color Urine Appearance Urine pH (5.0-8.0) Ur Specific Pitman (1.001-1.035) Urine Protein (NEGATIVE) mg/dL Urine Glucose (UA) (NEGATIVE) mg/dL Urine Ketones (NEGATIVE) mg/dL Urine Occult Blood (NEGATIVE) Urine Nitrite (NEGATIVE) Urine Bilirubin (NEGATIVE) Urine Urobilinogen (<2.0) EU/dL Ur Leukocyte Esterase (NEGATIVE) Urine Opiates Screen (NEGATIVE) Ur Oxycodone Screen (NEGATIVE) Urine Methadone Screen (NEGATIVE) Ur Barbiturates Screen (NEGATIVE) Ur Phencyclidine Scrn (NEGATIVE) Ur Amphetamine Screen (NEGATIVE) U Methamphetamines Scrn (NEGATIVE) U Benzodiazepines Scrn (NEGATIVE) U Cocaine Metab Screen (NEGATIVE) U Marijuana (THC) Screen (NEGATIVE) Ethyl Alcohol mg/dL 06/26/19 06/26/19 06/26/19 Range/Units 15:55 17:31 17:31 WBC (4.0-11.0) K/uL RBC (4.50-5.90) M/uL Hgb (13.0-17.0) g/dL Hct (38.0-50.0) % MCV (80.0-98.0) fL MCH (27.0-32.0) pg MCHC (31.0-37.0) g/dL RDW Std Deviation (28.0-62.0) fl RDW Coeff of Temo (11.0-15.0) % Plt Count (150-400) K/uL MPV (7.40-12.00) fL Neut % (Auto) (48.0-80.0) % Lymph % (Auto) (16.0-40.0) % Thurston % (Auto) (0.0-15.0) % Eos % (Auto) (0.0-7.0) % Baso % (Auto) (0.0-1.5) % Neut # (Auto) (1.4-5.7) K/uL Lymph # (Auto) (0.6-2.4) K/uL Thurston # (Auto) (0.0-0.8) K/uL Eos # (Auto) (0.0-0.7) K/uL Baso # (Auto) (0.0-0.1) K/uL Nucleated RBC % /100WBC Nucleated RBCs # K/uL Sodium (136-148) mmol/L Potassium (3.5-5.1) mmol/L Chloride (98-107) mmol/L Carbon Dioxide (21.0-32.0) mmol/L BUN (7.0-18.0) mg/dL Creatinine (0.8-1.3) mg/dL Est Cr Clr Drug Dosing mL/min Estimated GFR (MDRD) ml/min Glucose (74-106) mg/dL Calcium (8.5-10.1) mg/dL Total Bilirubin (0.2-1.0) mg/dL AST (15-37) IU/L ALT (14-63) IU/L Alkaline Phosphatase (46-116) U/L Troponin I (0.000-0.056) ng/mL Total Protein (6.4-8.2) g/dL Albumin (3.4-5.0) g/dL Globulin (2.6-4.0) g/dL Albumin/Globulin Ratio (0.9-1.6) Lipase (73-393) U/L Urine Color YELLOW Urine Appearance CLEAR Urine pH 6.5 (5.0-8.0) Ur Specific Pitman 1.025 (1.001-1.035) Urine Protein NEGATIVE (NEGATIVE) mg/dL Urine Glucose (UA) NEGATIVE (NEGATIVE) mg/dL Urine Ketones NEGATIVE (NEGATIVE) mg/dL Urine Occult Blood NEGATIVE (NEGATIVE) Urine Nitrite NEGATIVE (NEGATIVE) Urine Bilirubin NEGATIVE (NEGATIVE) Urine Urobilinogen 0.2 (<2.0) EU/dL Ur Leukocyte Esterase NEGATIVE (NEGATIVE) Urine Opiates Screen NEGATIVE (NEGATIVE) Ur Oxycodone Screen NEGATIVE (NEGATIVE) Urine Methadone Screen NEGATIVE (NEGATIVE) Ur Barbiturates Screen NEGATIVE (NEGATIVE) Ur Phencyclidine Scrn NEGATIVE (NEGATIVE) Ur Amphetamine Screen NEGATIVE (NEGATIVE) U Methamphetamines Scrn NEGATIVE (NEGATIVE) U Benzodiazepines Scrn NEGATIVE (NEGATIVE) U Cocaine Metab Screen NEGATIVE (NEGATIVE) U Marijuana (THC) Screen NEGATIVE (NEGATIVE) Ethyl Alcohol < 3.0 mg/dL 06/26/19 Range/Units 18:45 WBC (4.0-11.0) K/uL RBC (4.50-5.90) M/uL Hgb (13.0-17.0) g/dL Hct (38.0-50.0) % MCV (80.0-98.0) fL MCH (27.0-32.0) pg MCHC (31.0-37.0) g/dL RDW Std Deviation (28.0-62.0) fl RDW Coeff of Temo (11.0-15.0) % Plt Count (150-400) K/uL MPV (7.40-12.00) fL Neut % (Auto) (48.0-80.0) % Lymph % (Auto) (16.0-40.0) % Thurston % (Auto) (0.0-15.0) % Eos % (Auto) (0.0-7.0) % Baso % (Auto) (0.0-1.5) % Neut # (Auto) (1.4-5.7) K/uL Lymph # (Auto) (0.6-2.4) K/uL Thurston # (Auto) (0.0-0.8) K/uL Eos # (Auto) (0.0-0.7) K/uL Baso # (Auto) (0.0-0.1) K/uL Nucleated RBC % /100WBC Nucleated RBCs # K/uL Sodium (136-148) mmol/L Potassium (3.5-5.1) mmol/L Chloride (98-107) mmol/L Carbon Dioxide (21.0-32.0) mmol/L BUN (7.0-18.0) mg/dL Creatinine (0.8-1.3) mg/dL Est Cr Clr Drug Dosing mL/min Estimated GFR (MDRD) ml/min Glucose (74-106) mg/dL Calcium (8.5-10.1) mg/dL Total Bilirubin (0.2-1.0) mg/dL AST (15-37) IU/L ALT (14-63) IU/L Alkaline Phosphatase (46-116) U/L Troponin I 0.075 H* (0.000-0.056) ng/mL Total Protein (6.4-8.2) g/dL Albumin (3.4-5.0) g/dL Globulin (2.6-4.0) g/dL Albumin/Globulin Ratio (0.9-1.6) Lipase (73-393) U/L Urine Color Urine Appearance Urine pH (5.0-8.0) Ur Specific Pitman (1.001-1.035) Urine Protein (NEGATIVE) mg/dL Urine Glucose (UA) (NEGATIVE) mg/dL Urine Ketones (NEGATIVE) mg/dL Urine Occult Blood (NEGATIVE) Urine Nitrite (NEGATIVE) Urine Bilirubin (NEGATIVE) Urine Urobilinogen (<2.0) EU/dL Ur Leukocyte Esterase (NEGATIVE) Urine Opiates Screen (NEGATIVE) Ur Oxycodone Screen (NEGATIVE) Urine Methadone Screen (NEGATIVE) Ur Barbiturates Screen (NEGATIVE) Ur Phencyclidine Scrn (NEGATIVE) Ur Amphetamine Screen (NEGATIVE) U Methamphetamines Scrn (NEGATIVE) U Benzodiazepines Scrn (NEGATIVE) U Cocaine Metab Screen (NEGATIVE) U Marijuana (THC) Screen (NEGATIVE) Ethyl Alcohol mg/dL Meds: Medications Generic Name Dose Route Start Last Admin Trade Name Freq PRN Reason Stop Dose Admin Sodium Chloride 10 ml 06/26/19 15:46 06/26/19 16:13 Saline Flush FLUSH 10 ml ASDIRECTED PRN Administration Keep Vein Open Sodium Chloride 2.5 ml 06/26/19 15:46 06/26/19 16:13 Saline Flush FLUSH 2.5 ml ASDIRECTED PRN Administration Keep Vein Open Discontinued Medications Generic Name Dose Route Start Last Admin Trade Name Freq PRN Reason Stop Dose Admin Aspirin 324 mg 06/26/19 16:42 06/26/19 17:24 Aspirin PO 06/26/19 16:43 324 mg ONETIME ONE Administration Sodium Chloride 1,000 mls @ 999 mls/hr 06/26/19 15:46 06/26/19 16:11 Normal Saline IV 06/26/19 16:46 999 mls/hr STAT ONE Administration Lorazepam 1 mg 06/26/19 15:46 06/26/19 16:11 Ativan IVPUSH 06/26/19 15:47 1 mg ONETIME ONE Administration Ondansetron HCl 4 mg 06/26/19 15:46 06/26/19 16:12 Zofran IVPUSH 06/26/19 15:47 4 mg ONETIME ONE Administration Departure - Departure Time of Disposition: 19:29 Disposition: Against Medical Advice 07 Clinical Impression: Elevated troponin, Chest pain, rule out acute myocardial infarction, Left against medical advice - Discharge Information Referrals: Lobo Baer MD [Primary Care Provider] - Sepsis Event Note - Focused Exam Vital Signs: Vital Signs Temp Pulse Resp BP Pulse Ox 06/26/19 18:26 90 18 111/78 97 06/26/19 17:45 87 109/75 94 L 06/26/19 17:34 80 119/71 97 06/26/19 17:00 78 108/73 95 06/26/19 16:44 76 113/77 97 06/26/19 16:30 74 18 113/77 96 06/26/19 15:52 96.5 F L 101 H 22 H 131/92 H 95 Date Exam was Performed: 06/26/19 Time Exam was Performed: 19:24 - My Orders Last 24 Hours: My Active Orders 06/26/19 15:46 EKG Documentation Completion [RC] STAT Sodium Chloride 0.9% [Saline Flush] 10 ml FLUSH ASDIRECTED PRN Sodium Chloride 0.9% [Saline Flush] 2.5 ml FLUSH ASDIRECTED PRN Saline Lock Insert [OM.PC] Stat - Assessment/Plan Last 24 Hours: My Active Orders 06/26/19 15:46 EKG Documentation Completion [RC] STAT Sodium Chloride 0.9% [Saline Flush] 10 ml FLUSH ASDIRECTED PRN Sodium Chloride 0.9% [Saline Flush] 2.5 ml FLUSH ASDIRECTED PRN Saline Lock Insert [OM.PC] Stat
[2019-06-26 16:28] LABS: BLOOD UREA NITROGEN,BUN 16 mg/dL (7.0-18.0); CARBON DIOXIDE,CO2 30.3 mmol/L (21.0-32.0); CHLORIDE,CL 102 mmol/L (98-107); GLUCOSE RANDOM 100 mg/dL (74-106); POTASSIUM,K 3.6 mmol/L (3.5-5.1); SODIUM,NA 140 mmol/L (136-148)
--- NOTE | 2019-06-26 16:29 | CR ---
Chest: Portable view of the chest was obtained. Comparison: Previous chest x-ray of 11/17/17. Lung markings are mildly increased which appears stable. No acute parenchymal change is appreciated. Heart size and mediastinum are normal. Minimal scoliosis is noted within the spine. Impression: 1. Nothing acute is appreciated on portable chest x-ray. Diagnostic code #2 This report was dictated in MDT
[2019-06-26] MEDS ORDERED: Aspirin 81 MG Tab.Chew PO ONE (16:42)
--- NOTE | 2019-06-26 18:25 | CT ---
Head CT Technique: Multiple axial sections through the brain were obtained. Intravenous contrast was not utilized. Comparison: No prior intracranial imaging is available. Findings: Ventricles along with basal cisterns and sulci over the convexities appear within normal limits for the patient's age. No abnormal parenchymal densities are seen. No evidence of intracranial hemorrhage. No midline shift or mass-effect is seen. Bone window settings were reviewed. No acute calvarial finding is seen. Visualized paranasal sinuses and mastoid sinuses are clear. Impression: 1. Nothing acute is appreciated on noncontrast head CT exam. Diagnostic code #2 This report was dictated in MDT
[2019-06-26 23:36] VITALS: BP 118/83; PULSE 94
== END 2019-06-26 19:29 | disposition left against medical advice (07) ==
LOC: MW.ED 15:40
DX: R07.9 Chest pain, unspecified (principal); R79.89 Other specified abnormal findings of blood chemistry; K58.9 Irritable bowel syndrome, unspecified; Z88.5 Allergy status to narcotic agent; Z79.899 Other long term (current) drug therapy
CPT/HCPCS: 70450; 71045; 80053; 80305; 80307; 81003; 83690; 84484; 85025; 93005; 96361; 96374; 96375; 99285; A9270; J2060; J2405; J7030; 99283